=== PATIENT | female | born 1970 | race Two or more races ===

== ENCOUNTER 2018-01-09 08:34 | Outpatient (CLI) | payer OTHER ==
[~2018-01-09 08:34] MED LIST: MOTRIN800 MG PO
== END 2018-01-09 08:58 | disposition home or self-care (01) ==
LOC: LAB 08:34
DX: A31.0 Pulmonary mycobacterial infection (principal)

== ENCOUNTER 2018-01-10 08:25 | Outpatient (CLI) | payer OTHER | END 2018-01-10 08:28 | disposition home or self-care (01) | LOC: LAB 08:25 | DX: A31.0 Pulmonary mycobacterial infection (principal) ==

== ENCOUNTER → 2018-01-11 | Outpatient (CLI) | payer OTHER | END | disposition home or self-care (01) | LOC: LAB 08:17 | DX: A31.0 Pulmonary mycobacterial infection (principal); E11.65 Type 2 diabetes mellitus with hyperglycemia ==

== ENCOUNTER → 2018-01-18 | Outpatient (CLI) | payer OTHER | END | disposition home or self-care (01) | LOC: LAB 01-14 15:41 | DX: E11.65 Type 2 diabetes mellitus with hyperglycemia (principal); A31.0 Pulmonary mycobacterial infection ==

== ENCOUNTER 2018-04-02 12:04 | Outpatient (CLI) | payer OTHER | END 2018-04-02 12:42 | disposition home or self-care (01) | LOC: RAD 12:04 | DX: A31.0 Pulmonary mycobacterial infection (principal) ==

== ENCOUNTER 2018-04-23 08:06 | Outpatient (CLI) | payer OTHER | END 2018-04-23 08:15 | disposition home or self-care (01) | LOC: SONOGRAMA 08:06 | DX: M70.62 Trochanteric bursitis, left hip (principal) ==

== ENCOUNTER 2018-09-24 09:06 | Outpatient (CLI) | payer OTHER | END 2018-09-24 12:30 | disposition home or self-care (01) | LOC: MAMO-SONO 09:06 | DX: N60.11 Diffuse cystic mastopathy of right breast (principal); Z12.31 Encounter for screening mammogram for malignant neoplasm of breast; R05 Cough ==

== ENCOUNTER 2019-01-01 08:02 | Outpatient (CLI) | payer OTHER | END 2019-01-01 08:23 | disposition home or self-care (01) | LOC: LAB 08:02 | DX: D69.59 Other secondary thrombocytopenia (principal); D51.3 Other dietary vitamin B12 deficiency anemia; D50.8 Other iron deficiency anemias; D51.8 Other vitamin B12 deficiency anemias; D51.1 Vitamin B12 deficiency anemia due to selective vitamin B12 malabsorption with proteinuria; D51.0 Vitamin B12 deficiency anemia due to intrinsic factor deficiency; D55.0 Anemia due to glucose-6-phosphate dehydrogenase [G6PD] deficiency; E03.8 Other specified hypothyroidism; E06.3 Autoimmune thyroiditis; E53.1 Pyridoxine deficiency; I10 Essential (primary) hypertension ==

== ENCOUNTER 2019-01-01 09:08 | Outpatient (CLI) | payer OTHER | END 2019-01-01 09:10 | disposition home or self-care (01) | LOC: SONOGRAMA 09:08 | DX: D51.3 Other dietary vitamin B12 deficiency anemia (principal); D69.59 Other secondary thrombocytopenia; E06.3 Autoimmune thyroiditis; E03.8 Other specified hypothyroidism ==

== ENCOUNTER 2019-04-21 07:39 | Outpatient (CLI) | payer OTHER | END 2019-04-21 07:52 | disposition home or self-care (01) | LOC: LAB 07:39 | DX: D69.59 Other secondary thrombocytopenia (principal); D50.8 Other iron deficiency anemias; I10 Essential (primary) hypertension; D51.3 Other dietary vitamin B12 deficiency anemia ==

== ENCOUNTER 2019-09-24 08:52 | Outpatient (CLI) | payer OTHER | END 2019-09-24 15:00 | disposition home or self-care (01) | LOC: LAB 08:52 | DX: D50.8 Other iron deficiency anemias (principal); I10 Essential (primary) hypertension; D69.59 Other secondary thrombocytopenia; D51.3 Other dietary vitamin B12 deficiency anemia; D51.8 Other vitamin B12 deficiency anemias; E03.8 Other specified hypothyroidism; D68.8 Other specified coagulation defects ==

== ENCOUNTER 2020-07-02 13:24 | Outpatient (CLI) | payer OTHER | END 2020-07-02 13:42 | disposition home or self-care (01) | LOC: RAD 13:24 | PROVIDERS: ATTEND Obstetrics & Gynecology | DX: N60.11 Diffuse cystic mastopathy of right breast (principal); K91.1 Postgastric surgery syndromes; R07.89 Other chest pain; A31.0 Pulmonary mycobacterial infection ==

== ENCOUNTER 2020-12-14 08:11 | Outpatient (CLI) | payer OTHER | END 2020-12-14 08:56 | disposition home or self-care (01) | LOC: LAB 08:11 | PROVIDERS: ATTEND Obstetrics & Gynecology | DX: N60.11 Diffuse cystic mastopathy of right breast (principal) ==

== ENCOUNTER 2021-01-19 17:05 | Emergency (ER) | payer OTHER ==
[~2021-01-19] VITALS: Ht 165.1 cm; Wt 53.1 kg
== END 2021-01-19 21:40 | disposition home or self-care (01) ==
LOC: ER 17:05
DX: R04.2 Hemoptysis (principal)

== ENCOUNTER 2021-01-25 08:12 | Outpatient (CLI) | payer OTHER | END 2021-01-25 18:00 | disposition home or self-care (01) | LOC: LAB 08:12 | PROVIDERS: ATTEND Internal Medicine Pulmonary Disease | DX: A31.0 Pulmonary mycobacterial infection (principal); J15.9 Unspecified bacterial pneumonia; R04.2 Hemoptysis ==

== ENCOUNTER 2021-01-28 13:50 | Outpatient (CLI) | payer OTHER | END 2021-01-28 13:51 | disposition home or self-care (01) | LOC: LAB 13:50 | PROVIDERS: ATTEND Internal Medicine Pulmonary Disease | DX: A31.0 Pulmonary mycobacterial infection (principal) ==

== ENCOUNTER 2021-02-09 10:46 | Outpatient (CLI) | payer OTHER | END 2021-02-09 15:00 | disposition home or self-care (01) | LOC: LAB 10:46 | PROVIDERS: ATTEND Internal Medicine Pulmonary Disease | DX: A31.0 Pulmonary mycobacterial infection (principal) ==

== ENCOUNTER 2021-02-09 11:28 | Outpatient (CLI) | payer OTHER | END 2021-02-09 12:43 | disposition home or self-care (01) | LOC: OFIC 805 11:28 | PROVIDERS: ATTEND Otolaryngology Otology & Neurotology | DX: R04.2 Hemoptysis (principal); R04.0 Epistaxis; J32.8 Other chronic sinusitis ==

== ENCOUNTER 2021-02-16 11:59 | Outpatient (CLI) | payer OTHER | END 2021-02-16 12:48 | disposition home or self-care (01) | LOC: OFIC 805 11:59 | PROVIDERS: ATTEND Otolaryngology Otology & Neurotology | DX: A15.0 Tuberculosis of lung (principal); R04.2 Hemoptysis; R04.0 Epistaxis; J32.8 Other chronic sinusitis ==

== ENCOUNTER 2021-05-20 15:05 | Outpatient (CLI) | payer OTHER | END 2021-05-20 15:16 | disposition home or self-care (01) | LOC: RAD 15:05 | PROVIDERS: ATTEND Physical Medicine & Rehabilitation | DX: R07.89 Other chest pain (principal); M54.5 Low back pain; R04.2 Hemoptysis; M41.87 Other forms of scoliosis, lumbosacral region ==

== ENCOUNTER 2021-05-21 07:59 | Outpatient (CLI) | payer OTHER | END 2021-05-21 08:09 | disposition home or self-care (01) | LOC: LAB 07:59 | PROVIDERS: ATTEND Physical Medicine & Rehabilitation | DX: E16.1 Other hypoglycemia (principal); R94.5 Abnormal results of liver function studies; G90.09 Other idiopathic peripheral autonomic neuropathy; E53.8 Deficiency of other specified B group vitamins; Z00.00 Encounter for general adult medical examination without abnormal findings; E55.9 Vitamin D deficiency, unspecified ==

== ENCOUNTER 2021-05-25 08:40 | Outpatient (CLI) | payer OTHER | END 2021-05-25 08:53 | disposition home or self-care (01) | LOC: MRI 08:40 | PROVIDERS: ATTEND Physical Medicine & Rehabilitation | DX: M54.5 Low back pain (principal); M54.11 Radiculopathy, occipito-atlanto-axial region | CPT/HCPCS: 72148 ==

== ENCOUNTER 2021-12-08 13:51 | Outpatient (CLI) | payer OTHER | END 2021-12-08 14:05 | disposition home or self-care (01) | LOC: MAMO-SONO 13:51 | PROVIDERS: ATTEND Obstetrics & Gynecology | DX: N60.11 Diffuse cystic mastopathy of right breast (principal) ==

== ENCOUNTER 2022-04-07 11:44 | Outpatient (CLI) | payer OTHER | END 2022-04-07 12:00 | disposition home or self-care (01) | LOC: RAD 11:44 | PROVIDERS: ATTEND Internal Medicine Pulmonary Disease | DX: A31.0 Pulmonary mycobacterial infection (principal); R07.1 Chest pain on breathing; M19.042 Primary osteoarthritis, left hand ==

== ENCOUNTER → 2022-04-07 12:33 | Outpatient (CLI) | payer OTHER | END | disposition home or self-care (01) | LOC: LAB 12:33 | PROVIDERS: ATTEND Radiology Diagnostic Radiology | DX: M25.552 Pain in left hip (principal) ==

== ENCOUNTER 2022-04-24 08:21 | Outpatient (CLI) | payer OTHER | END 2022-04-24 08:37 | disposition home or self-care (01) | LOC: MRI 08:21 | PROVIDERS: ATTEND Chiropractor | DX: M25.552 Pain in left hip (principal) | CPT/HCPCS: 73723 ==

== ENCOUNTER 2022-09-04 07:32 | Outpatient (CLI) | payer OTHER | END 2022-09-04 07:33 | disposition home or self-care (01) | LOC: LAB 07:32 | DX: E03.9 Hypothyroidism, unspecified (principal); E11.65 Type 2 diabetes mellitus with hyperglycemia; E55.9 Vitamin D deficiency, unspecified; E04.1 Nontoxic single thyroid nodule; E22.1 Hyperprolactinemia ==

== ENCOUNTER 2022-09-08 07:59 | Outpatient (CLI) | payer OTHER | END 2022-09-08 08:23 | disposition home or self-care (01) | LOC: RAD 07:59 | PROVIDERS: ATTEND Physical Medicine & Rehabilitation | DX: M17.11 Unilateral primary osteoarthritis, right knee (principal); M17.12 Unilateral primary osteoarthritis, left knee; E22.1 Hyperprolactinemia; E03.9 Hypothyroidism, unspecified; E04.1 Nontoxic single thyroid nodule; E11.65 Type 2 diabetes mellitus with hyperglycemia ==

== ENCOUNTER → 2022-10-05 | Outpatient (CLI) | payer OTHER | END | disposition home or self-care (01) | LOC: SONOGRAMA 09:03 | PROVIDERS: ATTEND Pathology Anatomic Pathology & Clinical Pathology | DX: L02.33 Carbuncle of buttock (principal) ==

== ENCOUNTER 2023-04-12 14:30 | Outpatient (CLI) | payer OTHER | END 2023-04-12 14:43 | disposition home or self-care (01) | LOC: TOM 14:30 | PROVIDERS: ATTEND Internal Medicine Pulmonary Disease | DX: J45.31 Mild persistent asthma with (acute) exacerbation (principal); R06.02 Shortness of breath ==

== ENCOUNTER 2023-04-12 15:30 | Outpatient (CLI) | payer OTHER | END 2023-04-12 15:43 | disposition home or self-care (01) | LOC: LAB 15:30 | PROVIDERS: ATTEND Internal Medicine Pulmonary Disease | DX: J15.8 Pneumonia due to other specified bacteria (principal) ==

== ENCOUNTER 2023-04-13 10:11 | Outpatient (CLI) | payer OTHER | END 2023-04-13 10:12 | disposition home or self-care (01) | LOC: LAB 10:11 | PROVIDERS: ATTEND Internal Medicine Pulmonary Disease | DX: B44.9 Aspergillosis, unspecified (principal) ==

== ENCOUNTER 2023-04-14 08:57 | Outpatient (CLI) | payer OTHER | END 2023-04-14 09:01 | disposition home or self-care (01) | LOC: LAB 08:57 | PROVIDERS: ATTEND Internal Medicine Pulmonary Disease | DX: B44.9 Aspergillosis, unspecified (principal) ==

== ENCOUNTER → 2023-04-16 08:30 | Outpatient (CLI) | payer OTHER | END | disposition home or self-care (01) | LOC: LAB 08:30 | PROVIDERS: ATTEND Internal Medicine Pulmonary Disease | DX: A15.0 Tuberculosis of lung (principal) ==

== ENCOUNTER 2023-04-17 10:59 | Outpatient (CLI) | payer OTHER | END 2023-04-17 11:19 | disposition home or self-care (01) | LOC: LAB 10:59 | PROVIDERS: ATTEND Internal Medicine Pulmonary Disease | DX: A15.0 Tuberculosis of lung (principal) ==

== ENCOUNTER 2023-04-18 09:44 | Outpatient (CLI) | payer OTHER | END 2023-04-18 09:45 | disposition home or self-care (01) | LOC: LAB 09:44 | PROVIDERS: ATTEND Internal Medicine Pulmonary Disease | DX: A15.0 Tuberculosis of lung (principal) ==

== ENCOUNTER 2023-05-02 07:59 | Outpatient (CLI) | payer OTHER | END 2023-05-02 08:01 | disposition home or self-care (01) | LOC: NUCLEAR 07:59 | PROVIDERS: ATTEND Internal Medicine Pulmonary Disease | DX: R93.89 Abnormal findings on diagnostic imaging of other specified body structures (principal); A31.0 Pulmonary mycobacterial infection; R04.2 Hemoptysis ==

== ENCOUNTER 2023-10-09 13:30 | Outpatient (CLI) | payer OTHER | END 2023-10-09 13:45 | disposition home or self-care (01) | LOC: SONOGRAMA 13:30 | PROVIDERS: ATTEND Physical Medicine & Rehabilitation | DX: E04.1 Nontoxic single thyroid nodule (principal); M75.31 Calcific tendinitis of right shoulder; M25.511 Pain in right shoulder ==

== ENCOUNTER 2024-05-02 14:00 | Outpatient (CLI) | payer OTHER | END 2024-05-02 14:12 | disposition home or self-care (01) | LOC: RAD 14:00 | PROVIDERS: ATTEND Physical Medicine & Rehabilitation | DX: M54.50 Low back pain, unspecified (principal); M51.16 Intervertebral disc disorders with radiculopathy, lumbar region; M79.672 Pain in left foot; S90.32XA Contusion of left foot, initial encounter | CPT/HCPCS: 72148 ==

== ENCOUNTER 2024-06-09 13:51 | Outpatient (CLI) | payer OTHER | END 2024-06-09 14:15 | disposition home or self-care (01) | LOC: MAMO-SONO 13:51 | PROVIDERS: ATTEND Obstetrics & Gynecology | DX: N60.11 Diffuse cystic mastopathy of right breast (principal) ==

== ENCOUNTER 2024-07-25 12:39 | Outpatient (CLI) | payer OTHER | END 2024-07-25 12:45 | disposition home or self-care (01) | LOC: RAD 12:39 | PROVIDERS: ATTEND Internal Medicine Pulmonary Disease | DX: R91.8 Other nonspecific abnormal finding of lung field (principal); A31.0 Pulmonary mycobacterial infection ==

== ENCOUNTER 2024-07-28 11:46 | Outpatient (CLI) | payer OTHER | END 2024-07-28 11:54 | disposition home or self-care (01) | LOC: RAD 11:46 | PROVIDERS: ATTEND Physical Medicine & Rehabilitation | DX: M79.672 Pain in left foot (principal) ==

== ENCOUNTER 2024-08-08 07:57 | Outpatient (CLI) | payer OTHER | END 2024-08-08 07:59 | disposition home or self-care (01) | LOC: RAD 07:57 | PROVIDERS: ATTEND Internal Medicine Pulmonary Disease | DX: R06.02 Shortness of breath (principal) ==

== ENCOUNTER 2025-07-13 11:54 | Outpatient (CLI) | payer OTHER | END 2025-07-13 12:09 | disposition home or self-care (01) | LOC: MAMO-SONO 11:54 | PROVIDERS: ATTEND Obstetrics & Gynecology | DX: N60.11 Diffuse cystic mastopathy of right breast (principal); R04.2 Hemoptysis; J47.9 Bronchiectasis, uncomplicated; A31.0 Pulmonary mycobacterial infection ==

== ENCOUNTER → 2025-08-06 11:24 | Outpatient (CLI) | payer OTHER | END | disposition home or self-care (01) | LOC: SONOGRAMA 11:24 | DX: E04.1 Nontoxic single thyroid nodule (principal) ==

== ENCOUNTER 2025-09-04 10:53 | Outpatient (CLI) | payer OTHER | END 2025-09-04 10:54 | disposition home or self-care (01) | LOC: NUCLEAR 10:53 | DX: M81.0 Age-related osteoporosis without current pathological fracture (principal) ==